=== PATIENT | male | born 1955 | race African-American/Black ===

== ENCOUNTER 2025-04-30 13:27 | Emergency (ER) | payer MEDICARE ==
[~2025-04-30] VITALS: Ht 188 cm; Wt 93.6 kg
[2025-04-30] MEDS ORDERED: AMLO-258 PO (14:02)
[2025-04-30] MEDS ORDERED: NAPR-1193 PO (14:02)
[2025-04-30] MEDS ORDERED: DICL100G60 TP ×2 (14:02→15:57)
[2025-04-30] MEDS ORDERED: HYDR25TA2 PO (14:02)
[2025-04-30 15:39] VITALS: BP 120/55; PULSE 60; RESP 18; TEMP 98.6; O2SAT 100
[2025-04-30] MEDS ORDERED: NAPR-1197 PO (15:40)
== END 2025-04-30 16:07 | disposition home or self-care (01) ==
LOC: EMS 13:27
DX: M17.31 Unilateral post-traumatic osteoarthritis, right knee (principal); I10 Essential (primary) hypertension; Z79.899 Other long term (current) drug therapy; Z76.0 Encounter for issue of repeat prescription
CPT/HCPCS: 29530; 99283